=== PATIENT | female | born 1950 | race Caucasian/White ===

== ENCOUNTER 2022-04-04 09:17 | Emergency (ER) | payer MEDICARE ==
[2022-04-04 11:04] LABS: #Eosinphils 0.1 thou/uL (0.0-0.7); #Lymphocytes 1.8 thou/uL (1.20-3.40); #Monocytes 0.6 thou/uL (0.11-0.59); #Neutrophils 5.6 thou/uL (1.40-6.50); %Basophils 0.3 % (0.0-1.0); %Eosinophils 1.7 % (0.0-10.0); %Lymphocytes 22.3 % (21.0-51.0); %Monocytes 7.1 % (0.0-10.0); %Neutrophils 68.5 % (42.0-75.0); Mean Corpuscular Hemoglobin 31.3 pg (27.0-31.0); Mean Corpuscular Volume 97.8 fL (78.0-98.0); Mean Platelet Volume 6.6 fL (7.4-10.4); Platelet Count 313 thou/uL (130-400); RBC Distribution Width 12.2 % (11.5-14.5); Red Blood Cell (RBC) Count 3.85 mill/uL (4.20-5.40); White Blood Cell (WBC) Count 8.1 thou/uL (4.8-10.8)
[2022-04-04 11:20] LABS: ALT (SGPT) 21 U/L (8-55); AST (SGOT) 18 U/L (5-34); Albumin 4.5 g/dL (3.4-4.8); Alkaline Phosphatase 87 U/L (40-110); Anion Gap 16 mmol/L (10-20); BUN (Urea Nitrogen) 13 mg/dL (9.8-20.1); Bilirubin, Total 0.7 mg/dL (0.2-1.2); Calc. Creatinine Clearance 0 mL/min (70-130); Calcium 9.9 mg/dL (7.8-10.44); Carbon Dioxide 27 mmol/L (23-31); Chloride 101 mmol/L (98-107); Globulin 3.2 g/dL (2.4-3.5); Glucose 142 mg/dL (80-115); Magnesium 1.1 mg/dL (1.6-2.6); Potassium 4.7 mmol/L (3.5-5.1); Protein, Total 7.7 g/dL (5.8-8.1); Sodium 139 mmol/L (136-145)
[2022-04-04] MEDS ORDERED: Magnesium 2 GM/50 ML BAG (IN WATER) ONE (13:12)
== END 2022-04-04 14:03 | disposition home or self-care (01) ==
LOC: ERS 09:17
DX: E83.42 Hypomagnesemia (principal); R53.1 Weakness; Z79.899 Other long term (current) drug therapy
CPT/HCPCS: 36415; 71045; 80053; 83735; 84443; 85025; 93005; 96365; J3475

== ENCOUNTER 2022-04-20 10:15 | Outpatient (CLI) | payer MEDICARE | END 2022-04-20 10:16 | disposition home or self-care (01) | LOC: PET 10:15 | PROVIDERS: ATTEND Internal Medicine Critical Care Medicine | DX: R91.8 Other nonspecific abnormal finding of lung field (principal) | CPT/HCPCS: 78815; A9552 ==

== ENCOUNTER 2022-04-21 07:52 | Day surgery (SDC) | payer MEDICARE ==
[2022-04-20 08:50] VITALS: BMI 28.0
[2022-04-21] MEDS ORDERED: fentaNYL Citrate/PF 100 MCG/2 ML SYRINGE ONE (10:29)
[2022-04-21] MEDS ORDERED: Lidocaine 1% (PF) 30 ML VIAL ONE (10:33)
[2022-04-21] MEDS ORDERED: Lidocaine 2% Jelly 5 ML TUBE ONE (10:33)
[2022-04-21] MEDS ORDERED: PROPOFOL 200 MG/20 ML VIAL ONE (11:19)
[2022-04-21] MEDS ORDERED: Lidocaine 1% PF 5 ML VIAL ONE (11:19)
[2022-04-21] MEDS ORDERED: PHENYLEPHRINE-NS 100 MCG/ML 10 ML SYRINGE ONE (11:19)
[2022-04-21] MEDS ORDERED: Rocuronium Bromide 10 MG/ML (10ML VIAL) ONE (11:19)
[2022-04-21] MEDS ORDERED: Glycopyrrolate 0.2 MG/ML 5 ML SYRINGE ONE (11:19)
[2022-04-21] MEDS ORDERED: Dexamethasone 20 MG/5 ML VIAL ONE (11:19)
[2022-04-21] MEDS ORDERED: EPINEPHrine 1 MG/10 ML Abboject SYRINGE ONE (11:44)
[2022-04-21] MEDS ORDERED: methylPREDNISolone Sod Succ 40 MG VIAL ONE (11:50)
[2022-04-21] MEDS ORDERED: SUGAMMADEX SODIUM 200 MG/2 ML VIAL ONE (11:54)
[2022-04-21] MEDS ORDERED: Albuterol Sulfate 1.25 MG/3 ML NEB ONE (12:08)
== END 2022-04-21 15:45 | disposition home or self-care (01) ==
LOC: SDC 07:52
PROVIDERS: ATTEND Internal Medicine Critical Care Medicine
PROC: 0BD88ZX Extraction of Left Upper Lobe Bronchus, Via Natural or Artificial Opening Endoscopic, Diagnostic (ICD-10-PCS; principal; 2022-04-21)
PROC: 0BD88ZX Extraction of Left Upper Lobe Bronchus, Via Natural or Artificial Opening Endoscopic, Diagnostic (ICD-10-PCS; 2022-04-21)
DX: C34.12 Malignant neoplasm of upper lobe, left bronchus or lung (principal); Z87.891 Personal history of nicotine dependence; Z79.84 Long term (current) use of oral hypoglycemic drugs; Z79.890 Hormone replacement therapy; Z79.899 Other long term (current) drug therapy
CPT/HCPCS: 88112; 88305; 88313; 88341; 88342; J0171; J1100; J2001; J2704; J2920

== ENCOUNTER 2022-08-01 08:11 | Outpatient (CLI) | payer MEDICARE ==
[2022-08-01] MEDS ORDERED: Magnevist 469MG/ML 20 ML VIAL ONE (13:22)
== END 2022-08-01 08:12 | disposition home or self-care (01) ==
LOC: PET 08:11
PROVIDERS: ATTEND Internal Medicine Hematology & Oncology
DX: C34.02 Malignant neoplasm of left main bronchus (principal); C79.31 Secondary malignant neoplasm of brain
CPT/HCPCS: 70553; 78815; A9552; A9579

== ENCOUNTER 2022-10-13 09:02 | Day surgery (SDC) | payer MEDICARE ==
[2022-10-13] MEDS ORDERED: Acetaminophen 500 MG TAB ONE (09:45)
[2022-10-13] MEDS ORDERED: diphenhydrAMINE 25 MG CAP ONE (09:45)
[2022-10-13] MEDS ORDERED: diphenhydrAMINE 25 MG CAP PO SCH (10:00)
[2022-10-13] MEDS ORDERED: Acetaminophen 500 MG TAB PO SCH (10:00)
[2022-10-13 15:40] VITALS: BP 124/68; TEMP 98.3
== END 2022-10-13 15:49 | disposition home or self-care (01) ==
LOC: ONC/OP 09:02
PROVIDERS: ATTEND Internal Medicine Hematology & Oncology
PROC: 30233N1 Transfusion of Nonautologous Red Blood Cells into Peripheral Vein, Percutaneous Approach (ICD-10-PCS; principal; 2022-10-13)
DX: D64.9 Anemia, unspecified (principal); D69.6 Thrombocytopenia, unspecified
CPT/HCPCS: 36430; 86850; 86900; 86901; J1642; P9016

== ENCOUNTER 2022-11-03 15:21 | Outpatient (CLI) | payer MEDICARE | END 2022-11-03 15:22 | disposition home or self-care (01) | LOC: SCSMRI 15:21 | PROVIDERS: ATTEND Radiology Radiation Oncology | DX: C79.31 Secondary malignant neoplasm of brain (principal); C34.90 Malignant neoplasm of unspecified part of unspecified bronchus or lung; G93.9 Disorder of brain, unspecified | CPT/HCPCS: 70553 ==

== ENCOUNTER 2022-12-05 11:15 | Outpatient (CLI) | payer MEDICARE | END 2022-12-05 11:16 | disposition home or self-care (01) | LOC: PET 11:15 | PROVIDERS: ATTEND Internal Medicine Hematology & Oncology | DX: C34.90 Malignant neoplasm of unspecified part of unspecified bronchus or lung (principal) | CPT/HCPCS: 78815; A9552 ==

== ENCOUNTER 2023-02-05 08:59 | Outpatient (CLI) | payer MEDICARE ==
[2023-02-05] MEDS ORDERED: Magnevist 469MG/ML 20 ML VIAL ONE (11:19)
== END 2023-02-05 09:00 | disposition home or self-care (01) ==
LOC: MRI 08:59
PROVIDERS: ATTEND Radiology Radiation Oncology
DX: C79.31 Secondary malignant neoplasm of brain (principal); I67.82 Cerebral ischemia
CPT/HCPCS: 70553

== ENCOUNTER 2023-02-27 10:15 | Outpatient (CLI) | payer MEDICARE | END 2023-02-27 10:16 | LOC: PET 10:15 | PROVIDERS: ATTEND Internal Medicine Hematology & Oncology | DX: C34.02 Malignant neoplasm of left main bronchus (principal); Z98.890 Other specified postprocedural states | CPT/HCPCS: 78815; A9552 ==

== ENCOUNTER 2023-08-16 11:35 | Outpatient (CLI) | payer MEDICARE | END 2023-08-16 11:36 | disposition home or self-care (01) | LOC: PET 11:35 | PROVIDERS: ATTEND Internal Medicine Hematology & Oncology | DX: C34.02 Malignant neoplasm of left main bronchus (principal); G93.9 Disorder of brain, unspecified | CPT/HCPCS: 70553; 78815; A9552 ==

== ENCOUNTER 2023-11-14 20:12 | Emergency (ER) | payer MEDICARE ==
[2023-11-14 21:28] LABS: #Eosinphils 0.1 thou/uL (0.0-0.7); #Monocytes 0.7 thou/uL (0.11-0.59); #Neutrophils 3.9 thou/uL (1.40-6.50); %Basophils 0.3 % (0.0-1.0); %Eosinophils 2.2 % (0.0-10.0); %Lymphocytes 21.3 % (21.0-51.0); %Monocytes 10.8 % (0.0-10.0); %Neutrophils 65.1 % (42.0-75.0); Hematocrit 28.1 % (36.0-47.0); Hemoglobin 9.5 g/dL (12.0-16.0); Mean Corpuscular HGB CONC 33.8 g/dL (32.0-36.0); Mean Corpuscular Hemoglobin 34.8 pg (27.0-31.0); Mean Corpuscular Volume 102.9 fl (78.0-98.0); Mean Platelet Volume 8.6 fL (7.4-10.4); Platelet Count 175 10x3/uL (130-400); RBC Distribution Width 14.2 % (11.5-14.5); Red Blood Cell (RBC) Count 2.73 mill/uL (4.20-5.40)
[2023-11-14 21:53] LABS: ALT (SGPT) 22 U/L (8-55); AST (SGOT) 23 U/L (5-34); Albumin 4.1 g/dL (3.4-4.8); Alkaline Phosphatase 56 U/L (40-110); Anion Gap 13 mmol/L (10-20); BUN (Urea Nitrogen) 16 mg/dL (9.8-20.1); Bilirubin, Total 0.7 mg/dL (0.2-1.2); Calc. Creatinine Clearance 0 mL/min (70-130); Calcium 9.3 mg/dL (7.8-10.44); Carbon Dioxide 21 mmol/L (23-31); Chloride 106 mmol/L (98-107); Estimated GFR 63; Globulin 2.5 g/dL (2.4-3.5); Glucose 91 mg/dL (83-110); Protein, Total 6.6 g/dL (5.8-8.1); Sodium 136 mmol/L (136-145)
[2023-11-14 21:57] LABS: Troponin I Less than 0.010 ng/mL (< 0.028)
[2023-11-14 23:54] LABS: Bacteria/HPF 2+ HPF (None Seen); Bilirubin Negative (Negative); Blood, Urine Trace (Negative); CAUTI Indications for Culture Immunosuppressed; Clarity Turbid (Clear); Glucose, Urine (Dipstick) Normal (Negative); Ketone, Urine Negative (Negative); Leukocyte 500 Leu/uL (Negative); Nitrite Negative (Negative); Protein, Urine (Dipstick) Negative (Neg-Trace); Specific Gravity, Urine 1.007 (1.002-1.036); Urobilinogen Normal mg/dL (Less than 2); WBC/HPF 21-50 HPF (0-3)
[2023-11-14 23:55] LABS: Urine Culture Reflex Yes Yes
== END 2023-11-15 00:57 | disposition home or self-care (01) ==
LOC: ERS 20:12
DX: N39.0 Urinary tract infection, site not specified (principal); E11.9 Type 2 diabetes mellitus without complications; I10 Essential (primary) hypertension; Z79.84 Long term (current) use of oral hypoglycemic drugs; Z79.82 Long term (current) use of aspirin
CPT/HCPCS: 71045; 80053; 81001; 84443; 84484; 85025; 87086; 93005

== ENCOUNTER → 2023-11-21 | Outpatient (CLI) | payer MEDICARE | LOC: PET 10:15 | PROVIDERS: ATTEND Internal Medicine Hematology & Oncology | DX: C34.02 Malignant neoplasm of left main bronchus (principal) | CPT/HCPCS: 78815; A9552 ==

== ENCOUNTER → 2024-02-20 | Outpatient (CLI) | payer MEDICARE | LOC: PET 08:45 | PROVIDERS: ATTEND Internal Medicine Hematology & Oncology | DX: C34.02 Malignant neoplasm of left main bronchus (principal); D50.0 Iron deficiency anemia secondary to blood loss (chronic); D53.9 Nutritional anemia, unspecified | CPT/HCPCS: 78815; A9552 ==

== ENCOUNTER 2024-02-21 10:03 | Outpatient (CLI) | payer MEDICARE ==
[2024-02-21] MEDS ORDERED: Magnevist 469MG/ML 20 ML VIAL ONE (12:54)
== END 2024-02-21 10:04 | disposition home or self-care (01) ==
LOC: SJX 10:03 → MRI 10:04
PROVIDERS: ATTEND Radiology Radiation Oncology
DX: C79.31 Secondary malignant neoplasm of brain (principal); G93.9 Disorder of brain, unspecified
CPT/HCPCS: 70553; A9579